=== PATIENT | female | born 2000 | race American Indian/Alaskan Native ===

== ENCOUNTER 2020-01-30 22:24 | Outpatient (CLI) | payer OTHER, MEDICAID ==
[2020-01-30 22:41] VITALS: BP 130/71
== END 2020-01-31 00:45 | disposition home or self-care (01) ==
LOC: TRG 22:24 → APU 22:25 → TRG 01-31 00:45
PROVIDERS: ATTEND Obstetrics & Gynecology
DX: Z34.83 Encounter for supervision of other normal pregnancy, third trimester (principal); Z3A.38 38 weeks gestation of pregnancy
CPT/HCPCS: 59025